=== PATIENT | male | born 1935 | race Two or more races ===

== ENCOUNTER 2017-09-06 08:57 | Emergency (ER) | payer OTHER ==
[~2017-09-06] VITALS: Ht 170.2 cm; Wt 72.1 kg
[~2017-09-06 08:57] MED LIST: ALTACE5 MG; ASA325 MG PO; ATENOLOL100 MG; ATENOLOL50 MG; CARDIZEM120 MG PO
[2017-09-06] MEDS ORDERED: LANOXIN125 MCG (09:19)
[2017-09-06] MEDS ORDERED: ELIQUIS5 MG (09:20)
== END 2017-09-06 11:12 | disposition home or self-care (01) ==
LOC: ER 08:57
DX: J06.9 Acute upper respiratory infection, unspecified (principal)

== ENCOUNTER 2018-03-21 11:23 | Outpatient (CLI) | payer OTHER ==
[~2018-03-21 11:23] MED LIST changes: +ELIQUIS5 MG; +LANOXIN125 MCG
== END 2018-03-21 11:50 | disposition home or self-care (01) ==
LOC: RAD 501 11:23
DX: J01.90 Acute sinusitis, unspecified (principal); J32.8 Other chronic sinusitis

== ENCOUNTER 2018-12-06 09:42 | Outpatient (CLI) | payer OTHER | END 2018-12-06 09:48 | disposition home or self-care (01) | LOC: RAD 09:42 | DX: M54.2 Cervicalgia (principal); M25.512 Pain in left shoulder ==

== ENCOUNTER 2018-12-12 01:33 | Emergency (ER) | payer OTHER ==
[~2018-12-12] VITALS: Ht 170.2 cm; Wt 74.4 kg
[2018-12-12] MEDS ORDERED: ELIQUIS2.5 MG (01:48)
== END 2018-12-12 17:59 | disposition home or self-care (01) ==
LOC: ER 01:33 → CPU-OBS 01:36 → ER 01:36
DX: I48.0 Paroxysmal atrial fibrillation (principal); R06.02 Shortness of breath; R53.1 Weakness

== ENCOUNTER 2018-12-13 14:09 | Inpatient (IN) | payer OTHER ==
[~2018-12-13] VITALS: Ht 170.2 cm; Wt 74.4 kg
[~2018-12-13 14:09] MED LIST changes: +ELIQUIS2.5 MG
== END 2018-12-19 12:46 | disposition designated cancer center or children's hospital (05) | DRG 309 ==
LOC: MEDJ 14:09 → ICU 14:09 → MEDJ 12-16 17:48
PROVIDERS: ADMIT Internal Medicine Cardiovascular Disease
PROC: 4A12X4Z Monitoring of Cardiac Electrical Activity, External Approach (ICD-10-PCS; principal; 2018-12-13)
PROC: 0T9B70Z Drainage of Bladder with Drainage Device, Via Natural or Artificial Opening (ICD-10-PCS; 2018-12-13)
DX: I48.0 Paroxysmal atrial fibrillation (principal); M86.171 Other acute osteomyelitis, right ankle and foot; R31.0 Gross hematuria; Z79.01 Long term (current) use of anticoagulants

== ENCOUNTER 2018-12-30 09:57 | Inpatient (IN) | payer OTHER ==
[~2018-12-30] VITALS: Ht 170.2 cm; Wt 73.5 kg
[2018-12-30] MEDS ORDERED: LASIX20 MG PO (10:05)
== END 2019-01-04 17:05 | disposition home or self-care (01) | DRG 291 ==
LOC: ER 09:57 → ICU 17:08 → ICU-2 17:08 → ICU 17:36
PROVIDERS: ADMIT Internal Medicine
PROC: 4A033R1 Measurement of Arterial Saturation, Peripheral, Percutaneous Approach (ICD-10-PCS; 2018-12-30)
PROC: 0T9B70Z Drainage of Bladder with Drainage Device, Via Natural or Artificial Opening (ICD-10-PCS; 2018-12-30)
PROC: B246ZZZ Ultrasonography of Right and Left Heart (ICD-10-PCS; principal; 2018-12-31)
DX: I11.0 Hypertensive heart disease with heart failure (principal); B37.1 Pulmonary candidiasis; J90 Pleural effusion, not elsewhere classified; R18.8 Other ascites; E27.1 Primary adrenocortical insufficiency; Z99.11 Dependence on respirator [ventilator] status; G72.81 Critical illness myopathy; J98.11 Atelectasis; K92.1 Melena; R31.0 Gross hematuria; I50.22 Chronic systolic (congestive) heart failure; I08.3 Combined rheumatic disorders of mitral, aortic and tricuspid valves; R09.02 Hypoxemia

== ENCOUNTER 2020-08-13 15:08 | Outpatient (CLI) | payer OTHER ==
[~2020-08-13 15:08] MED LIST changes: +LASIX20 MG PO
== END 2020-08-13 15:17 | disposition home or self-care (01) ==
LOC: RAD 15:08
PROVIDERS: ATTEND Physical Medicine & Rehabilitation
DX: M25.511 Pain in right shoulder (principal); M75.111 Incomplete rotator cuff tear or rupture of right shoulder, not specified as traumatic

== ENCOUNTER 2020-10-07 08:00 | Outpatient (CLI) | payer OTHER | END 2020-10-07 08:30 | disposition home or self-care (01) | LOC: PPH VACUNA 08:00 | DX: Z23 Encounter for immunization (principal) ==

== ENCOUNTER 2021-01-30 10:43 | Emergency (ER) | payer OTHER ==
[~2021-01-30] VITALS: Ht 170.2 cm; Wt 67.1 kg
[2021-01-30] MEDS ORDERED: FE C PLUS TABL1 EACH PO (15:42)
== END 2021-01-30 15:51 | disposition home or self-care (01) ==
LOC: ER 10:43
DX: K62.5 Hemorrhage of anus and rectum (principal); K59.09 Other constipation; K57.90 Diverticulosis of intestine, part unspecified, without perforation or abscess without bleeding; I48.91 Unspecified atrial fibrillation

== ENCOUNTER 2021-03-24 17:35 | Emergency (ER) | payer OTHER ==
[~2021-03-24] VITALS: Ht 170.2 cm; Wt 64.4 kg
[~2021-03-24 17:35] MED LIST changes: +FE C PLUS TABL1 EACH PO
[2021-03-24] MEDS ORDERED: METOPROLOL SUCC50 MG (17:58)
== END 2021-03-24 22:04 | disposition designated cancer center or children's hospital (05) ==
LOC: ER 17:35
DX: S06.5X0A Traumatic subdural hemorrhage without loss of consciousness, initial encounter (principal); S40.011A Contusion of right shoulder, initial encounter; S60.221A Contusion of right hand, initial encounter; X58.XXXA Exposure to other specified factors, initial encounter; Y92.018 Other place in single-family (private) house as the place of occurrence of the external cause; I10 Essential (primary) hypertension